=== PATIENT | male | born 1985 | race Caucasian/White ===

== ENCOUNTER 2025-03-02 00:42 | Emergency (ER) | payer OTHER, SELFPAY ==
[2025-03-02 00:42] VITALS: BMI 34.2
[2025-03-02 00:54] VITALS: BP 138/79
[2025-03-02 01:25] LABS: % Basophils 1.1 % (0-2); % Eosinophils 2.1 % (0-6); % Immature Granulocytes 0.2 % (0-0.5); % Lymphocytes 27.7 % (20.5-51.1); % Monocytes 6.1 % (1.7-9.3); % Neutrophils 62.8 % (42.2-75.2); Absolute Basophils 0.1 10^3/uL (0-0.2); Absolute Eosinophils 0.2 10^3/uL (0-0.7); Absolute Lymphocytes 2.6 10^3/uL (1.2-3.4); Absolute Monocytes 0.6 10^3/uL (0.1-0.6); Absolute Neutrophils 5.9 10^3/uL (1.4-6.5); Hematocrit 49.1 % (39.0-52.0); Hemoglobin 17.1 g/dL (13.0-18.0); Mean Corp Hgb Conc. 34.8 g/dL (33.0-37.0); Mean Corpuscular Hgb 29.9 pg (27.0-31.0); Mean Platelet Volume 9.6 fL (7.4-10.4); Nucleated Red Blood Cells % 0 % (-); Platelet Count 286 10^3/uL (130-400); Red Blood Cell Count 5.71 10^6/uL (4.70-6.10); Red Cell Dist. Width 12.3 % (11.5-14.5); White Blood Cell Count 9.4 10^3/uL (4.8-10.8)
[2025-03-02 01:38] LABS: ALT (SGPT) 74 U/L (0-50); AST (SGOT) 38 U/L (17-59); Albumin 4.7 g/dl (3.5-5.0); Alkaline Phosphatase 82 U/L (38-126); Blood Urea Nitrogen 16 mg/dl (9-20); Calcium 10.2 mg/dl (8.4-10.2); Carbon Dioxide 25 mmol/L (22-30); Chloride 107 mmol/L (98-107); Glucose 118 mg/dl (70-99); Potassium 4.4 mmol/L (3.5-5.1); Sodium 143 mmol/L (135-145); Total Bilirubin 1.4 mg/dl (0.2-1.3); Total Protein 7.5 g/dl (6.3-8.2); eGFR > 60.00
[2025-03-02 01:42] LABS: Troponin I < 0.012 ng/ml
--- NOTE | 2025-03-02 02:37 | ED.GENMED ---
History of Present Illness
General
Chief Complaint: Chest Pain
Source: patient
Exam Limitations: none
Time Seen by Provider: 03/02/25 02:26
Nursing documentation reviewed up to this point in time: agreed with
History of Present Illness
History of Present Illness:
39-year-old male with history of tobacco use disorder, alcohol use disorder, anxiety, depression presents emergency department today with concerns of palpitations and intermittent chest pressure for the past week. Patient reports that he first
noticed this when he is sitting on the couch a few days ago. Patient states that he describes palpitations as an occasional premature beat. He does not note an increase in his heart rate. He denies any shortness of breath with this. He reports
that when he feels a premature beat, he feels like it is a jolt in his chest. He states that 1 time is associated with lightheadedness but it quickly resolved on its own. Patient denies any syncopal episodes. Patient also has intermittent chest
pressure associated with this and he noted that a few days ago it did radiate down his left arm. Patient states that he has been thinking that his symptoms were not and he has been getting very anxious about them. Patient has no associated nausea
or vomiting. Patient has no family history of coronary artery disease however his dad does have a history of A-fib. He has had similar symptoms a few years ago and states that he decreased on his caffeine intake which seemed to help. Patient
states that he used to smoke cigarettes but has been free of cigarette use for multiple months now and he currently uses nicotine gum which he states that, well this has helped him stop smoking, he reports that now he uses nicotine more frequently
when she is, multiple times a day. He denies any redness or swelling in the lower extremities, recent long distance travel.
Past History
Past History
ED Past Medical History: None
ED Past Surgical History: Other (Jaw surgery)
Social History
Tobacco: Smoker
Alcohol: None
Drug: None
Living: with family
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
Review of Systems
Review of Systems
All Other Systems: ROS reviewed and negative except as documented in HPI and ROS
Phy Exam
Physical Exam
Physical Exam:
General: Patient is well appearing and in no acute distress; non-toxic
Skin: Warm and dry, no rashes or lesions
Head: Normocephalic, atraumatic
Eyes: Sclera non-icteric. EOMs intact.
Cardiac: Regular rate and rhythm, no murmurs. No tenderness palpation of external chest wall
Peripheral Vascular: No lower extremity swelling or edema
Pulm: Normal respiratory effort, no wheezes, rales, rhonchi
Abdomen: No abdominal tenderness to palpation
Neuro: CN II-XII intact, no focal neurologic deficits.
Psychiatric: Appropriate mood and affect.
Scores
Heart Score for Chest Pain Patients
STEMI patient?: Not applicable
PERC Rule Criteria
Age <50 years: Yes
HR <100 bpm: Yes
Room air oxygen sat >94%: Yes
History of DVT or PE: No
Recent trauma or surgery: No
Hemoptysis: No
Exogenous estrogen: No
Clinical signs suggestive of DVT: No
: No
Considered low risk for PE: Yes
PERC Score: 0
PE can be excluded by PERC: Yes
Course
Orders/Labs/Results
Orders:
Orders
03/02/25 00:43
EKG [Electrocardiogram (*1)] Urgent
Reason for Study: Chest Pain
EKG- Treatment ONCE
03/02/25 00:58
Chest [CR Chest - 2 Views ] Urgent
Comment:
Reason For Exam: intermittent chest discomfort, sob at times
03/02/25 01:13
Complete Blood Count/With Diff Urgent
Comprehensive Metabolic Panel Urgent
Free T4 Urgent
Magnesium Urgent
Comment: ADD ON
TSH Reflex To Free T4 Urgent
Troponin I Urgent
03/02/25 02:33
Add On- LAB Urgent
Tests Added?: magnesium, tsh reflex t4
Abnormal Lab Results
03/02/25
01:13
Glucose 118 H mg/dl
(70-99)
Total Bilirubin 1.4 H mg/dl
(0.2-1.3)
ALT 74 H U/L
(0-50)
TSH (Reflex) 6.87 H uIU/ml
(0.47-4.68)
03/02/25 01:13
03/02/25 01:13
Vital Signs
Initial and Last Documented VS:
Initial Vital Signs
Temp Pulse Resp BP Pulse Ox
98.4 F 87 16 138/79 96
03/02/25 00:54 03/02/25 00:54 03/02/25 00:54 03/02/25 00:54 03/02/25 00:54
Last Documented Vital Signs
Temp Pulse Resp BP Pulse Ox
98.4 F 87 16 135/78 96
03/02/25 00:54 03/02/25 00:54 03/02/25 00:54 03/02/25 03:10 03/02/25 00:54
MDM/Problems Addressed
Differential Diagnosis Includes:
Sinus arrhythmia, electrolyte derangement, symptomatic anemia, anxiety, costochondritis, ACS, A-fib/a flutter
MDM/Problems Addressed:
39-year-old male with history of tobacco use disorder, alcohol use disorder, anxiety, depression presents emergency department today with concerns of palpitations and intermittent chest pressure for the past week. Patient reports that he first
noticed this when he is sitting on the couch a few days ago. Patient states that he describes palpitations as an occasional premature beat but denies sensation of his heart racing. His chest pain comes and goes is not related to exertion. He has
been upping his use of nicotine recently with nicotine gum. Exam he is well-appearing in no acute distress, he has no active symptoms at this time. His chest x-ray does not show any evidence of any acute disease. EKG shows sinus arrhythmia with
no ischemic changes, his troponin is undetectable. His electrolytes are within normal range. Not suspect ACS at this time. Suspect increased nicotine use contributing to sensation of palpitations. Patient is never been evaluated by supervisor tank storage
for symptoms. Did recommend evaluation by supervisor tank storage for potential Holter monitoring for further workup. Referral information given. Return precautions discussed. Patient stable for discharge.
*Pulse Oximetry
Patient hypoxic: no
*EKG
Interpreted by ED Provider?: Yes
EKG Intrepretation Date: 03/02/25
Interpretation: abnormal (Sinus arrhythmia)
Comparison EKG: no changes
Heart Rate: 60
Rate: normal
Rhythm: sinus and sinus arrhythmia
[place]: normal axis
Interval: normal interval
*Critical Care Note
Total Time (30-74mins, 75-104mins- exclusive of procedures): Not Applicable
Data Reviewed
Review of Other/Old Records Reveals: Records (Reviewed ER/complication from 09/20/2019 patient seen for corneal ulcer, no discharge summaries [facility] to review, did review ER physician condition for 10/08/ patient was seen for similar symptoms
had unremarkable workup and was discharged)
ED Attending Note
-
Portions of this chart may have been created with voice recognition software.� Occasional wrong word or��sound alike� substitutions may have occurred due to the inherent limitations of voice recognition software.
Discharge Plan
Departure
Patient Disposition: Home (Routine Discharge)
Date of Disposition: 03/02/25
Time of Disposition: 03:12
Patient with high blood pressure during this ER visit?: Yes
Condition: Good
Discharge Problem:
Intermittent palpitations, Intermittent chest pain
Instructions: Chest pain - Discharge instructions, BLOOD PRESSURE, Heart Palpitations
Prescriptions:
No Action
escitalopram oxalate 10 MG tablet
10 mg PO DAILY
Referrals:
Lexa Farooq MD [Active] - Call in 1-3 days for appt
Activity Restrictions/Additional Instructions:
Please considering weaning off of nicotine based products as this can contribute to palpitations.
Please call the attached number today to schedule an appointment to see cardiology. You may need a Holter monitor to further evaluate your symptoms. Please also call primary care provider to get repeat blood work as well as your cholesterol panel
checked.
PLEASE RETURN EMERGENCY DEPARTMENT SHOULD YOU EXPERIENCE ACUTE WORSENING OF YOUR SYMPTOMS, SHORTNESS OF BREATH, FAINTING SPELL, DIZZINESS, LIGHTHEADEDNESS, RAPID HEART RATE, WEAKNESS IN 1 SIDE BODY VERSUS THE OTHER, VISUAL LOSS, CONFUSION, OR ANY
OTHER SIGNS OR SYMPTOMS WORRISOME TO YOU.
Interventions
Interventions:
*Risk Screen - Suicide Last Done: 03/02/25 00:54
*General Assessment Last Done: 03/02/25 03:08
*ED COVID-19 Vaccine History Last Done: 03/02/25 03:08
*Nursing Disposition Last Done: 03/02/25 03:58
ED- Cardiac Assessment Last Done: 03/02/25 03:09
Discharge Date and Time
Discharge Date/Time: 03/02/25 03:58
Print Language: IRISH
[2025-03-02 03:10] VITALS: BP 135/78
[2025-03-02 03:15] LABS: Magnesium 1.9 mg/dl (1.6-2.3)
[2025-03-02 04:07] LABS: TSH Reflex To Free T4 6.87 uIU/ml (0.47-4.68)
[2025-03-02 04:34] LABS: Free T4 1.15 ng/dl (0.78-2.19)
== END 2025-03-02 03:58 | disposition home or self-care (01) ==
LOC: EMR 00:42
PROVIDERS: Emergency Medicine; EMERGENCY PHYSICIAN Student in an Organized Health Care Education/Training Program; FAMILY PHYSICIAN Internal Medicine
DX: R00.2 Palpitations (principal); R07.89 Other chest pain; F17.210 Nicotine dependence, cigarettes, uncomplicated; I49.8 Other specified cardiac arrhythmias
CPT/HCPCS: 99285; 71046; 80053; 83735; 84439; 84443; 84484; 85025; 93005

== ENCOUNTER → 2025-08-10 13:06 | Outpatient (REF) | payer OTHER, SELFPAY | LOC: RCS 13:06 | PROVIDERS: ATTENDING PHYSICIAN Nurse Practitioner Family; FAMILY PHYSICIAN Internal Medicine | DX: R00.2 Palpitations (principal) | CPT/HCPCS: 93225; 93226 ==

== ENCOUNTER → 2025-08-13 07:01 | Outpatient (REF) | payer OTHER, SELFPAY | LOC: HWRCS 07:01 | PROVIDERS: ATTENDING PHYSICIAN Nurse Practitioner Family; FAMILY PHYSICIAN Internal Medicine | DX: R00.2 Palpitations (principal) | CPT/HCPCS: 93306 ==